=== PATIENT | female | born 1985 | race Caucasian/White ===

== ENCOUNTER 2017-01-02 21:29 | Emergency (ER) | payer MEDICAID, OTHER ==
[~2017-01-02] VITALS: Ht 165.1 cm; Wt 68.0 kg
[2017-01-02 21:33] VITALS: BP 112/75
--- NOTE | 2017-01-02 22:56 | NUR ---
PT TAKEN TO BED 7
--- NOTE | 2017-01-02 23:03 | NUR ---
PT PRESENT TO ER WITH C/O ABDOMINAL PAIN, WITH NAUSEA STARTED 2 HOURS AGO
--- NOTE | 2017-01-02 23:19 | NUR ---
Dr. Ernst evaluating patient at bedside.
[2017-01-02] MEDS ORDERED: ACETAMINOPHEN 325 MG TAB PO ONE (23:40)
[2017-01-02] MEDS ORDERED: FAMOTIDINE 20 MG TAB PO ONE (23:40)
--- NOTE | 2017-01-03 00:02 | NUR ---
AT 23:[address] QUIROZ GAVE V.O. TO ROOM WORKER ABDIRAHMAN TO HOLD CT AT THIS TIME
--- NOTE | 2017-01-03 00:54 | NUR ---
TAKEN FOR X-RAY Addendum: 01/03/17 at 0055 by [email or web address] TAKEN FOR CT SCAN
--- NOTE | 2017-01-03 00:55 | NUR ---
PT TAKEN TO CT
--- NOTE | 2017-01-03 01:07 | NUR ---
PT RETURN FROM CT
[2017-01-03 03:03] VITALS: BP 113/75
--- NOTE | 2017-01-03 03:05 | NUR ---
Patient discharged with v/s stable. Written and verbal after care instructions given and explained. Patient alert, oriented and verbalized understanding of instructions. Ambulatory with steady gait. All questions addressed prior to discharge. ID band removed. Patient advised to follow up with PMD. Rx of MAGNESIUM CITRATE LOW SIDIUM, MIRALAX POWDER SOLUTION, COLACE 100MG PO given. Patient educated on indication of medication including possible reaction and side effects. Opportunity to ask questions provided and answered.
== END 2017-01-03 03:05 | disposition home or self-care (01) ==
LOC: MED 21:29
DX: K59.00 Constipation, unspecified (principal)